=== PATIENT | male | born 1995 | race Two or more races ===

== ENCOUNTER 2022-03-30 18:10 | Emergency (ER) | payer SELFPAY ==
[~2022-03-30] VITALS: Ht 175.3 cm; Wt 88.6 kg
[2022-03-30 18:12] VITALS: BP 134/82
== END 2022-03-30 20:25 | disposition left against medical advice (07) ==
LOC: M ED 18:10
DX: Z53.21 Procedure and treatment not carried out due to patient leaving prior to being seen by health care provider (principal)